=== PATIENT | female | born 1995 | race Caucasian/White ===

== ENCOUNTER 2017-02-22 06:17 | Emergency (ER) | payer OTHER ==
[2017-02-22 06:33] VITALS: BMI 16.8
[2017-02-22] MEDS ORDERED: RANITIDINE HCL 150 MG TABLET (FP) PO ONE (07:29)
[2017-02-22] MEDS ORDERED: RANITIDINE HCL 150 MG TABLET (FP) ONE (07:35)
--- NOTE | 2017-02-22 07:49 | PDOC ---
*Physical Exam - Vital Signs Last Vital Signs Temp Pulse Resp BP Pulse Ox 97.8 F 93 H 18 113/84 100 02/22/17 06:28 02/22/17 06:28 02/22/17 06:28 02/22/17 06:28 02/22/17 06:28 ED Treatment Course - LABORATORY CBC & Chemistry Diagram: 02/22/17 08:00 02/22/17 08:00 - Medications Given in the ED: ED Medications Discontinued Medications Generic Name Dose Route Start Last Admin Trade Name Nicko PRN Reason Stop Dose Admin Ranitidine HCl 150 mg 02/22/17 07:29 02/22/17 07:36 Zantac - PO 02/22/17 07:30 150 mg ONCE ONE Administration Medical Decision Making - Medical Decision Making 02/22/17 07:48 21 yo F presents to the ER with a complaint of upper abdominal pain that began at 3 am. No tenderness to palpation Pt given zantac with improvement of symptoms Labs unremarkable Pt seen by Midlevel Provider under my direct supervision Ancillary studies reviewed I agree with plan as outlined by Midlevel Provider *DC/Admit/Observation/Transfer Diagnosis at time of Disposition: Epigastric abdominal pain - Discharge Dispostion Disposition: HOME Condition at time of disposition: Good - Referrals Referrals: Igor Walden MD [Primary Care Provider] - - Patient Instructions Printed Discharge Instructions: DI for Epigastric Pain Additional Instructions: At this point I do recommend increasing her activity and fiber in your diet as this may have been gas versus your acid reflux but I also did recommend continue Prilosec daily and following up with Dr. Walden as needed. If symptoms worsen please return to the ED. - Post Discharge Activity Work/School Note: Back to Work
--- NOTE | 2017-02-22 08:06 | PDOC ---
History of Present Illness - General Chief Complaint: Pain Stated Complaint: ABD PAIN Time Seen by Provider: 02/22/17 07:25 History Source: Patient Exam Limitations: No Limitations - History of Present Illness Travel History: No Initial Comments: 02/22/17 07:56 21-year-old female presents the ED with sudden onset of upper abdominal pain which she describes as sharp epigastric region radiating to bilateral flank region, 3 am this morning upon awakening to go to work. Patient states had cereal last night and went to bed uneventful and when she awoke at 2 AM 1 hour later symptoms began. Patient states similar symptoms back in July and was told by her PMD that it might be gastritis and has Prilosec at home to be used as needed. Patient denies fever, chills, dysuria, constipation, diarrhea, change in diet, change in weight, difficulty breathing, chest pain, history of gallstones, marijuana use, alcohol use, or urinary complaints. Timing/Duration: reports: intermittent Quality: reports: mild, moderate, sharpness Abdominal Pain Onset Location: reports: epigastric Pain Radiation: reports: flank (reanna) Activities at Onset: denies: none Aggravating Factors: worse with: None Alleviating Factors: worse with: None Past History - Past Medical History Allergies/Adverse Reactions: Allergies Allergy/AdvReac Type Severity Reaction Status Date / Time No Known Allergies Allergy Verified 02/22/17 06:39 Home Medications: Ambulatory Orders NK [No Known Home Medication] 02/22/17 - Reproductive History LMP Normal: Yes Is Patient Now?: No - Immunization History Immunization Up to Date: Yes - Psycho/Social/Smoking Cessation Hx Anxiety: No Suicidal Ideation: No Smoking History: Never smoked Hx Alcohol Use: No Drug/Substance Use Hx: No Substance Use Type: None Patient Lives Alone: No Lives with/in: parents Abd/GI Specific PMHX - Complaint Specific PMHX GERD: Yes Review of Systems - Review of Systems Constitutional: No: Symptoms Reported HEENTM: No: Symptoms Reported Respiratory: No: Symptoms reported Cardiac (ROS): No: Symptoms Reported ABD/GI: Yes: Abdominal cramping. No: Nausea, Vomiting : Yes: Flank Pain Musculoskeletal: No: Symptoms Reported Integumentary: No: Symptoms Reported Neurological: No: Symptoms reported Endocrine: No: Symptoms Reported Hematologic/Lymphatic: No: Symptoms Reported *Physical Exam - Vital Signs Last Vital Signs Temp Pulse Resp BP Pulse Ox 97.8 F 93 H 18 113/84 100 02/22/17 06:28 02/22/17 06:28 02/22/17 06:28 02/22/17 06:28 02/22/17 06:28 - Physical Exam General Appearance: Yes: Nourished, Appropriately Dressed. No: Apparent Distress HEENT: positive: Pharynx Normal Neck: positive: Normal Thyroid, Supple Respiratory/Chest: positive: Lungs Clear, Normal Breath Sounds. negative: Chest Tender, Respiratory Distress, Accessory Muscle Use Cardiovascular: positive: Regular Rhythm, Regular Rate. negative: Murmur Gastrointestinal/Abdominal: positive: Normal Bowel Sounds, Soft. negative: Distended, Guarding, Rebound, Tenderness, Mass Musculoskeletal: negative: CVA Tenderness Integumentary: positive: Normal Color, Warm, Moist Neurologic: positive: Normal Mood/Affect, Motor Strength 5/5 (ambulatory) ED Treatment Course - LABORATORY CBC & Chemistry Diagram: 02/22/17 08:00 02/22/17 08:00 - Medications Given in the ED: ED Medications Discontinued Medications Generic Name Dose Route Start Last Admin Trade Name Freq PRN Reason Stop Dose Admin Ranitidine HCl 150 mg 02/22/17 07:29 02/22/17 07:36 Zantac - PO 02/22/17 07:30 150 mg ONCE ONE Administration Medical Decision Making - Medical Decision Making 02/22/17 08:33 Patient complains of upper abdominal pain that started around 3 and this morning and is slightly subsided but still has mild discomfort upon my exam. Clinically I was unable to reproduce discomfort but due to location and age I will check CBC, comp, lipase, urinalysis and urine . Patient also ordered for Zantac due to history of GERD. 02/22/17 09:04 Laboratory Tests 02/22/17 02/22/17 08:00 08:00 WBC 9.8 D Hgb 13.7 Hct 40.7 Plt Count 210 Neutrophils % 72.4 D Urine HCG, Qual Negative 02/22/17 09:18 Laboratory Tests 02/22/17 02/22/17 08:00 08:00 Sodium 138 Potassium 3.5 Chloride 101 Carbon Dioxide 25 Anion Gap 12 BUN 7 Creatinine 0.5 L Random Glucose 77 Calcium 9.2 Total Bilirubin 0.3 D AST 19 D ALT 24 Lipase 110 Urine Ketones Negative Urine Nitrite Negative Urine HCG, Qual Negative Patient remains asymptomatic. Patient recommended to increase activity and fiber as this may been gas versus GERD. Patient also to follow-up with her PCP. *DC/Admit/Observation/Transfer Diagnosis at time of Disposition: Epigastric abdominal pain - Discharge Dispostion Disposition: HOME Condition at time of disposition: Good - Referrals Referrals: Igor Walden MD [Primary Care Provider] - - Patient Instructions Printed Discharge Instructions: DI for Epigastric Pain Additional Instructions: At this point I do recommend increasing her activity and fiber in your diet as this may have been gas versus your acid reflux but I also did recommend continue Prilosec daily and following up with Dr. Walden as needed. If symptoms worsen please return to the ED. - Post Discharge Activity Work/School Note: Back to Work
[2017-02-22 08:41] LABS: BASOPHIL 0.3 % (0-2.0); EOSINOPHIL 1.5 % (0-4.5); MCH 31.1 pg (25.7-33.7); MCHC 33.6 g/dl (32.0-36.0); MEAN CELL VOLUME 92.4 fl (80-96); MEAN PLT VOLUME 9.8 fl (7.5-11.1); NEUTROPHILS 72.4 % (42.8-82.8); PLATELET COUNT 210 K/MM3 (134-434); RDW 13.1 % (11.6-15.6); WHITE BLOOD COUNT 9.8 K/mm3 (4.0-10.0)
[2017-02-22 08:48] LABS: URINE APPEARANCE CLEAR; URINE BILIRUBIN NEGATIVE (NEGATIVE); URINE BLOOD NEGATIVE (NEGATIVE); URINE COLOR YELLOW; URINE GLUCOSE (UA) NEGATIVE (NEGATIVE); URINE KETONE NEGATIVE (NEGATIVE); URINE LEUK ESTERASE NEGATIVE (NEGATIVE); URINE NITRITE NEGATIVE (NEGATIVE); URINE PROTEIN NEGATIVE (NEGATIVE); URINE UROBILINOGEN NEGATIVE E.U./dl (0.2-1.0)
[2017-02-22 09:07] LABS: ALBUMIN 3.9 g/dl (3.4-5.0); ALK PHOS 57 U/L (45-117); ANION GAP 12 (8-16); BILIRUBIN,TOTAL 0.3 mg/dL (0.2-1.0); CALCIUM 9.2 mg/dL (8.5-10.1); CO2 25 mmol/L (21-32); CREATININE 0.5 mg/dL (0.55-1.02); GLUCOSE,RANDOM 77 mg/dL (74-106); SGOT/AST 19 U/L (15-37); SGPT/ALT 24 U/L (12-78); TOT PROT 7.2 g/dl (6.4-8.2)
[2017-02-22 09:35] VITALS: BP 111/72; PULSE 88; TEMP 98
== END 2017-02-22 09:25 | disposition home or self-care (01) ==
LOC: JER 06:17
DX: R10.13 Epigastric pain (principal); K21.9 Gastro-esophageal reflux disease without esophagitis
CPT/HCPCS: 36415; 80053; 81003; 83690; 84703; 85025; 99283-25

== ENCOUNTER 2017-08-21 00:55 | Emergency (ER) | payer OTHER ==
[2017-08-21 01:29] VITALS: BP 109/65; PULSE 119; TEMP 102; BMI 17.3
[2017-08-21] MEDS ORDERED: METOCLOPRAMIDE HCL INJECTION 10 MG/2 ML VIAL IVPUSH ONE (01:52)
[2017-08-21] MEDS ORDERED: KETOROLAC TROMETHAMINE 30 MG/1 ML VIAL IVPUSH ONE (01:52)
[2017-08-21] MEDS ORDERED: SODIUM CHLORIDE 1,000 ML IV STA (01:52)
--- NOTE | 2017-08-21 01:53 | PDOC ---
History of Present Illness - General History Source: Patient, Family Exam Limitations: No Limitations <JolantaJamie - Last Filed: 08/21/17 03:35> - General History Source: Patient Exam Limitations: No Limitations - History of Present Illness Initial Comments: 08/21/17 03:53 The patient is a 21 year old female, with no significant past medical history, who presents to the emergency room with fever, chills, and diffuse body aches beginning today. The patient reports that she felt fine earlier in the week, however, today she began experiencing cold-like symptoms. She reports associated symptoms of nausea without vomiting and headache. She denies recent travel or sick contacts. She denies recent chest pain or shortness of breath. Allergies: NKA PCP: Dr. Igor Walden <Andrew Matias - Last Filed: 08/21/17 05:08> - General Chief Complaint: Nausea/Vomiting Stated Complaint: VOMITING,FEVER Time Seen by Provider: 08/21/17 01:26 Past History - Immunization History Immunization Up to Date: Yes - Suicide/Smoking/Psychosocial Hx Smoking History: Never smoked Have you smoked in the past 12 months: No Information on smoking cessation initiated: No Hx Alcohol Use: No Drug/Substance Use Hx: No Substance Use Type: None <Jamie Stover - Last Filed: 08/21/17 03:35> <Andrew Matias - Last Filed: 08/21/17 05:08> - Past Medical History Allergies/Adverse Reactions: Allergies Allergy/AdvReac Type Severity Reaction Status Date / Time No Known Allergies Allergy Verified 08/21/17 01:14 Home Medications: Ambulatory Orders Metoclopramide HCl [Reglan] 10 mg PO Q6H PRN #15 tablet 08/21/17 Naproxen [Naprosyn -] 500 mg PO BID PRN #14 tablet 08/21/17 Review of Systems - Review of Systems Comments:: 08/21/17 04:00 ADULT ROS GENERAL/CONSTITUTIONAL: +Fever. +Chills. HEAD, EYES, EARS, NOSE AND THROAT: No change in vision. No ear pain or discharge. No sore throat. CARDIOVASCULAR: No chest pain or shortness of breath. RESPIRATORY: No cough, wheezing, or hemoptysis. GASTROINTESTINAL: +Nausea. No vomiting, diarrhea or constipation. GENITOURINARY: No dysuria, frequency, or change in urination. MUSCULOSKELETAL: +Diffuse body aches. No neck or back pain. SKIN: No rash NEUROLOGIC: +Headache. No vertigo, loss of consciousness, or change in strength/ sensation. ENDOCRINE: No increased thirst. No abnormal weight change. HEMATOLOGIC/LYMPHATIC: No anemia, easy bleeding, or history of blood clots. ALLERGIC/IMMUNOLOGIC: No hives or skin allergy. <Andrew Matias - Last Filed: 08/21/17 05:08> *Physical Exam - Vital Signs Last Vital Signs Temp Pulse Resp BP Pulse Ox 102.0 F H 119 H 20 109/65 97 08/21/17 01:14 08/21/17 01:14 08/21/17 01:14 08/21/17 01:14 08/21/17 01:14 <Jamie Stover - Last Filed: 08/21/17 03:35> - Vital Signs Last Vital Signs Temp Pulse Resp BP Pulse Ox 102.0 F H 119 H 20 109/65 97 08/21/17 01:14 08/21/17 01:14 08/21/17 01:14 08/21/17 01:14 08/21/17 01:14 - Physical Exam Comments: 08/21/17 05:07 GENERAL: +Warm to touch. Awake, alert, and fully oriented, in no acute distress. HEAD: No signs of trauma EYES: PERRLA, EOMI, sclera anicteric, conjunctiva clear ENT: Auricles normal inspection, hearing grossly normal, nares patent, oropharynx clear without exudates. Moist mucosa NECK: Normal ROM, supple, no lymphadenopathy, JVD, or masses LUNGS: Breath sounds equal, clear to auscultation bilaterally. No wheezes, and no crackles HEART: Regular rate and rhythm, normal S1 and S2, no murmurs, rubs or gallops ABDOMEN: Soft, nontender, normoactive bowel sounds. No guarding, no rebound. No masses EXTREMITIES: Normal range of motion, no edema. No clubbing or cyanosis. No cords, erythema, or tenderness NEUROLOGICAL: Cranial nerves II through XII grossly intact. Normal speech, normal gait SKIN: Warm, Dry, normal turgor, no rashes or lesions noted. <Andrew Matias - Last Filed: 08/21/17 05:08> ED Treatment Course - LABORATORY CBC & Chemistry Diagram: 08/21/17 02:20 08/21/17 02:20 <JolantaJamie - Last Filed: 08/21/17 03:35> - LABORATORY CBC & Chemistry Diagram: 08/21/17 02:20 08/21/17 02:20 - ADDITIONAL ORDERS Additional order review: Laboratory Results 08/21/17 08/21/17 02:20 02:20 Sodium 138 Potassium 3.5 Chloride 106 Carbon Dioxide 23 Anion Gap 9 BUN 11 D Creatinine 0.7 D Creat Clearance w eGFR > 60 Random Glucose 141 H D Calcium 8.8 Total Bilirubin 0.4 D AST 14 L D ALT 19 D Alkaline Phosphatase 51 Total Protein 6.3 L Albumin 3.5 Serum , Qual Negative Urine Color Ltyellow Urine Appearance Clear Urine pH 6.0 Urine Protein Negative Urine Glucose (UA) Negative Urine Ketones Negative Urine Blood 1+ H Urine Nitrite Negative Urine Bilirubin Negative Urine Urobilinogen Negative Urine RBC 13 Urine WBC 2 Ur Epithelial Cells Rare Urine Mucus Rare 08/21/17 02:20 RBC 4.00 MCV 90.6 MCHC 34.2 RDW 13.1 MPV 9.4 Neutrophils % 74.1 Lymphocytes % 14.5 D Monocytes % 8.3 Eosinophils % 2.4 Basophils % 0.7 - Medications Given in the ED: ED Medications Discontinued Medications Generic Name Dose Route Start Last Admin Trade Name Jjq PRN Reason Stop Dose Admin Sodium Chloride 1,000 mls @ 1,000 mls/hr 08/21/17 01:52 08/21/17 02:33 Normal Saline - IV 08/21/17 02:51 1,000 mls/hr ASDIR STA Administration Ketorolac Tromethamine 30 mg 08/21/17 01:52 08/21/17 02:34 Toradol Injection - IVPUSH 08/21/17 01:53 30 mg ONCE ONE Administration Metoclopramide HCl 10 mg 08/21/17 01:52 08/21/17 02:34 Reglan Injection - IVPUSH 08/21/17 01:53 10 mg ONCE ONE Administration <Andrew Matias - Last Filed: 08/21/17 05:08> Medical Decision Making - Medical Decision Making 08/21/17 03:08 A portion of this note was documented by scribe services under my direction. I have reviewed the details of the note, within reason, and agree with the documentation with the following case summary and management plan written by me. Patient treated in the ED. Nursing notes are reviewed and incorporated into the medical decision-making. Vital signs reviewed. Peripheral IV access obtained by the nurse, laboratory studies are drawn and sent, reviewed and interpreted by myself. Vital Signs Temp Pulse Resp BP Pulse Ox 102.0 F H 119 H 20 109/65 97 08/21/17 01:14 08/21/17 01:14 08/21/17 01:14 08/21/17 01:14 08/21/17 01:14 21-year-old female with no past medical history presents with chills, fevers, body aches, headaches and nausea. Denies diarrhea or abdominal pain. Patient denies sick contacts or recent travels. Started the symptoms today. I suspect the patient likely has a viral syndrome. Her headache is moderate. There is no neck stiffness or worsening headache of life. I have very low suspicion for meningitis at this time. We'll obtain labs and treat symptoms and reassess. If workup is unremarkable and his symptoms improved, we'll discharge patient with PMD follow-up. 08/21/17 03:26 CBC, BMP 08/21/17 02:20 08/21/17 02:20 CMP Sodium 138 mmol/L (136-145) 08/21/17 02:20 Potassium 3.5 mmol/L (3.5-5.1) 08/21/17 02:20 Chloride 106 mmol/L (98-107) 08/21/17 02:20 Carbon Dioxide 23 mmol/L (21-32) 08/21/17 02:20 Anion Gap 9 (8-16) 08/21/17 02:20 BUN 11 mg/dL (7-18) D 08/21/17 02:20 Creatinine 0.7 mg/dL (0.55-1.02) D 08/21/17 02:20 Creat Clearance w eGFR > 60 (>60) 08/21/17 02:20 Random Glucose 141 mg/dL (74-106) H D 08/21/17 02:20 Calcium 8.8 mg/dL (8.5-10.1) 08/21/17 02:20 Total Bilirubin 0.4 mg/dL (0.2-1.0) D 08/21/17 02:20 AST 14 U/L (15-37) L D 08/21/17 02:20 ALT 19 U/L (12-78) D 08/21/17 02:20 Alkaline Phosphatase 51 U/L (45-117) 08/21/17 02:20 Total Protein 6.3 g/dl (6.4-8.2) L 08/21/17 02:20 Albumin 3.5 g/dl (3.4-5.0) 08/21/17 02:20 Serum , Qual Negative 08/21/17 02:20 Urine Test Results Urine Color Ltyellow 08/21/17 02:20 Urine Appearance Clear 08/21/17 02:20 Urine pH 6.0 (5.0-8.0) 08/21/17 02:20 Urine Protein Negative (NEGATIVE) 08/21/17 02:20 Urine Glucose (UA) Negative (NEGATIVE) 08/21/17 02:20 Urine Ketones Negative (NEGATIVE) 08/21/17 02:20 Urine Blood 1+ (NEGATIVE) H 08/21/17 02:20 Urine Nitrite Negative (NEGATIVE) 08/21/17 02:20 Urine Bilirubin Negative (NEGATIVE) 08/21/17 02:20 Urine RBC 13 /hpf (0-3) 08/21/17 02:20 Urine WBC 2 /hpf (3-5) 08/21/17 02:20 Ur Epithelial Cells Rare /hpf (FEW) 08/21/17 02:20 Urine Mucus Rare 08/21/17 02:20 The patient reports no significant better tolerate by mouth. I suspect that this is likely viral syndrome. Supportive care and follow-up with primary care physician. Patient agrees with the plan and requests to be discharged. I discussed the physical exam findings, ancillary test results and final diagnoses with the patient. I answered all of the patient's questions. The patient was satisfied with the care received and felt comfortable with the discharge plan and treatment plan. The patient will call their primary care physician within 24 hours to arrange follow-up and will return to the Emergency Department with any new, persistant or worsening symptoms. <Jamie Stover - Last Filed: 08/21/17 03:35> *DC/Admit/Observation/Transfer - Discharge Dispostion Admit: No <Jamie Stover - Last Filed: 08/21/17 03:35> - Attestations Scribe Attestion: 08/21/17 04:01 Documentation prepared by Andrew Matias, acting as medical laboratory assistant for Jamie Stover MD. <Andrew Matias - Last Filed: 08/21/17 05:08> Diagnosis at time of Disposition: Viral syndrome - Discharge Dispostion Disposition: HOME Condition at time of disposition: Improved - Prescriptions Prescriptions: Naproxen [Naprosyn -] 500 mg PO BID PRN #14 tablet PRN Reason: Fever/Pain Metoclopramide HCl [Reglan] 10 mg PO Q6H PRN #15 tablet PRN Reason: Nausea - Referrals Referrals: Igor Walden MD [Primary Care Provider] - - Patient Instructions Printed Discharge Instructions: DI for Viral Syndrome Additional Instructions: Please drink plenty of fluids and rest. Your blood work shows no acute findings. Take 500 mg naprxen every 12 hours as needed for pain or fever. Take 10 mg reglan every 6 hours as needed for nausea. It may take several days before your symptoms improve. Follow up with your doctor. - Post Discharge Activity Forms/Work/School Notes: Back to Work
[2017-08-21 02:27] LABS: BASOPHIL 0.7 % (0-2.0); EOSINOPHIL 2.4 % (0-4.5); MCHC 34.2 g/dl (32.0-36.0); MEAN CELL VOLUME 90.6 fl (80-96); MEAN PLT VOLUME 9.4 fl (7.5-11.1); NEUTROPHILS 74.1 % (42.8-82.8); PLATELET COUNT 178 K/MM3 (134-434); RDW 13.1 % (11.6-15.6)
[2017-08-21] MEDS ORDERED: KETOROLAC TROMETHAMINE 30 MG/1 ML VIAL ONE (02:30)
[2017-08-21] MEDS ORDERED: METOCLOPRAMIDE HCL INJECTION 10 MG/2 ML VIAL ONE (02:30)
[2017-08-21 02:40] LABS: URINE APPEARANCE CLEAR; URINE BILIRUBIN NEGATIVE (NEGATIVE); URINE BLOOD 1+ (NEGATIVE); URINE COLOR LTYELLOW; URINE GLUCOSE (UA) NEGATIVE (NEGATIVE); URINE KETONE NEGATIVE (NEGATIVE); URINE NITRITE NEGATIVE (NEGATIVE); URINE PROTEIN NEGATIVE (NEGATIVE); URINE UROBILINOGEN NEGATIVE mg/dL (0.2-1.0)
[2017-08-21 02:43] LABS: URINE MUCUS RARE; URINE RBC 13 /hpf (0-3); URINE WBC 2 /hpf (3-5)
[2017-08-21 02:52] LABS: ALBUMIN 3.5 g/dl (3.4-5.0); ANION GAP 9 (8-16); CALCIUM 8.8 mg/dL (8.5-10.1); CO2 23 mmol/L (21-32); CREATININE 0.7 mg/dL (0.55-1.02); GLUCOSE,RANDOM 141 mg/dL (74-106); SGOT/AST 14 U/L (15-37); SGPT/ALT 19 U/L (12-78); TOT PROT 6.3 g/dl (6.4-8.2)
[2017-08-21 02:59] LABS: ALK PHOS 51 U/L (45-117); BILIRUBIN,TOTAL 0.4 mg/dL (0.2-1.0)
[2017-08-21 15:25] LABS: URINE LEUK ESTERASE Negative (NEGATIVE)
== END 2017-08-21 04:30 | disposition home or self-care (01) ==
LOC: JER 00:55
PROC: 3E0333Z Introduction of Anti-inflammatory into Peripheral Vein, Percutaneous Approach (ICD-10-PCS; principal; 2017-08-21)
PROC: 3E033GC Introduction of Other Therapeutic Substance into Peripheral Vein, Percutaneous Approach (ICD-10-PCS; 2017-08-21)
DX: B34.9 Viral infection, unspecified (principal)
CPT/HCPCS: 36415; 80053; 81003; 81015; 84703; 85025; 87086; 96374; 96375; 99281-25